=== PATIENT | male | born 1950 | race Caucasian/White ===

== ENCOUNTER 2021-03-11 15:01 | Emergency (ER) | payer MEDICARE, OTHER, SELFPAY ==
--- NOTE | 2021-03-11 15:03 | XRR_ITS ---
PROCEDURE INFORMATION: Exam: XR Right Foot Exam date and time: 03/11/2021 3:09 PM Age: 70 years old Clinical indication: Injury or trauma; Other: Not specified; Blunt trauma; Foot; Right; Additional info: Injury. Er provider findings: No obvious FX TECHNIQUE: Imaging protocol: XR Right foot. Views: 3 or more views. COMPARISON: No relevant prior studies available. FINDINGS: Bones/joints: Degenerative change of the 1st metatarsophalangeal joint. No fracture or other acute osseous abnormality. Soft tissues: No acute abnormality of the soft tissues demonstrated. Vasculature: Mild atherosclerotic calcification noted in the soft tissues. XR/XR foot RT min 3V* [id number] IMPRESSION: No acute fracture demonstrated.
[2021-03-11 15:14] VITALS: BP 130/89; PULSE 86; RESP 16; TEMP 36.7; O2SAT 97; BMI 25.8
--- NOTE | 2021-03-11 15:57 | USCV_ITS ---
Colten Robledo Age: 70 Gender: M : 1950 Exam Date: 03/11/2021 16:28 Ordering Phys: Otto Eckert Technologist: Velia Michelle Exam Location: [facility] [place] Indication: Tender calf HISTORY: Tender Calf PROCEDURES: Venous duplex imaging was performed in only the right lower extremity. The following venous structures were evaluated: common femoral vein, profunda vein, proximal portion of the greater saphenous vein, superficial femoral vein, and the popliteal vein. In addition, the posterior tibial and peroneal trunk were evaluated. Serial compression, augmentation maneuvers, and spectral Doppler flow evaluation were performed. FINDINGS: Pt has DVT in Rt. Peroneal thru Rt. PTV. Clot appears mobile. CONCLUSIONS DVT in the Right peroneal and right posterior tibial vein. Thrombus appears mobile. Alexis Gil MD (Electronically Signed) Final Date: 13 Mar 2021 13:23 S
--- NOTE | 2021-03-11 15:59 | ED_ITS ---
HPI - Extremity Problem General: Chief complaint: Extremity Injury, Lower Stated complaint: RGT FOOT INJURY Time Seen by Provider: 03/11/21 15:53 History of Present Illness: HPI Narrative: Patient comes in today with right calf pain and swelling. Patient reports that he had a injury to his foot about 3 weeks ago and has had persistent pain. Patient went to orthopedic surgeon on Thursday and was told he saw a stress fracture in the foot and put him in a wal patsy boot. Patient has had improvement in his pain and discomfort since starting the walking boot but since driving to [place] he has had some calf discomfort with mild swelling in the right lower extremity. Patient appears well. Patient appears no acute distress. MD Complaint: extremity pain Onset (ago): day(s) Pain Consistency: constant Location: right Quality: aching Radiation: none Relieving factors: nothing Exacerbating factors: nothing Review of Systems General: Reports: 10 or more systems reviewed and unremarkable except in HPI and below Musc: Reports: other (right calf pain) Physical Exam Const: COMMON NORMALS: no acute distress and patient oriented x3 GENERAL APPEARANCE: cooperative HENMT: COMMON NORMALS: normocephalic and Normal external nose present HEAD & SCALP: normal to inspection and normocephalic NOSE: Normal external nose present Eye: GENERAL EYE: appearance normal, both eyes and all related structures Neck/C-Spine: COMMON NORMALS: full ROM Chest: COMMONS NORMALS: normal inspection of the chest Resp: COMMON NORMALS: normal respiratory effort EFFORT & INSPECTION: Yes able to speak in complete sentences Cardio: COMMON NORMALS: regular rate and regular rhythm RATE: regular rate RHYTHM: regular rhythm GI: COMMON NORMALS: non-tender Back/Pelvis: COMMON NORMALS: thoracic and lumbar spine normal to inspection Extremity: NARRATIVE EXTREMITY EXAM: Mild swelling and tenderness to the right calf. Neuro: COMMON NORMALS: patient oriented x3 and moves all extremities Psych: COMMON NORMALS: mental status grossly normal and cooperative Skin: COMMON NORMALS: no rashes or lesions noted GENERAL SKIN EXAM: no max hes or lesions noted Course Vital Signs: Vital signs: Vital Signs Temperature 98.1 F 03/11/21 15:14 Pulse Rate 86 03/11/21 15:14 Respiratory Rate 16 03/11/21 15:14 Blood Pressure 130/89 03/11/21 15:14 Pulse Oximetry 97 03/11/21 15:14 MDM - Extremity (Nontraumatic) MDM Narrative: Medical decision making narrative: Patient came in with right calf pain. Patient has had problems with his right foot for the last 3 weeks. Patient was told that he had a stress fracture on Thursday and was placed in a walking boot. Patient on his way from [place] to here started having some calf pain. On exam we note some tenderness to the posterior calf and the posterior knee. Differential diagnosis includes superficial thrombophlebitis, DVT, muscle strain. X-ray of the foot indicated no new fractures. Ultrasound of the right lower leg noted a right peroneal DVT. Patient was started on Eliquis 10 mg twice a day for 1 week and then will drop to 5 mg twice a day. Patient was instructed to follow-up with primary care and instructed that he will need to be on the Eliquis for at least 3 months. Patient reported understanding and agreed to plan. Discharge Plan Discharge Patient Disposition: Home Clinical Impression: Acute deep vein thrombosis (DVT) of right peroneal vein Condition: Stable Prescriptions: New Eliquis DVT-PE Treat 30D Start 5 mg (74 tabs) tablets,dose pack See Rx Instructions .ROUTE .COMPLEX Qty: 74 RF: 0 Discharge Orders: Discharge ED (Routine); Ordered 03/11/21 Ordered By: Otto Eckert Discharge Diet: Usual diet Discharge Activity: Limit activity as instructed Patient Instructions: Deep Venous Thrombosis (ED), Opioid Safety Activity Restrictions/Additional Instructions: Light activity. Avoid strenuous activity. Drink plenty of water with medication. Follow-up with primary care as needed. Return to the emergency department for chest pain or short increased shortness of breath. Coding Level of Care Code ED Dental Associate for [facility] Exam Comprehensive
[2021-03-11] MEDS: apixaban 5 mg Tablet 10 MG PO (17:09)
== END 2021-03-11 17:09 | disposition home or self-care (01) ==
PROVIDERS: Emergency Provider Nurse Practitioner Family
DX: I82.451 Acute embolism and thrombosis of right peroneal vein (principal)
CPT/HCPCS: 73630; 93971; 99283